=== PATIENT | female | born 1965 | race Hispanic/Latino ===

== ENCOUNTER 2017-02-03 08:29 | Outpatient (CLI) | payer BC ==
--- NOTE | 2017-02-03 10:03 | CT ---
CT OF THE CHEST AND ABDOMEN WITH IV CONTRAST: Indication: History of left breast cancer, status post chemotherapy one month ago. Comparison: None. FINDINGS: CHEST: There is post-surgical change of a left mastectomy. No pathologically enlarged lymph nodes are eviden t within the mediastinum, elsa, or axillary regions. No suspicious pulmonary nodules identified. ABDOMEN: There is a small hiatal hernia. There is a 3.6 cm hypodense lesion within the left hepatic lobe most consistent with a cyst. No additional focal hepatic lesion is evident. The pancreas, adrenal glands, and left kidney are normal appearing. There is a 6 mm hypodensity within the right mid kidney which c annot be fully characterized due to its size. The spleen is mildly enlarged measuring 13.1 cm in its greatest craniocaudad dimension. No free fluid is evident. No pathologically enlarged lymph nodes are noted. The visualized opacified small and large bowel appear within normal limits. Visualized aspects of the appendix appears within normal limits. No suspicious osteolytic or osteoblastic lesion is identified. IMPRESSION: 1. No evidence for regional or metastatic disease. 2. Post-surgical changes of left mastectomy. 3. Left hepatic lobe cyst. 4. Small hiatal hernia. 5. Tiny right renal hypodensity. 6. Nonspecific mild splenomegaly. POS: [facility]
== END 2017-02-03 08:30 | disposition home or self-care (01) ==
LOC: CT 08:29
PROVIDERS: ATTEND Internal Medicine Hematology & Oncology
DX: C50.112 Malignant neoplasm of central portion of left female breast (principal); K76.89 Other specified diseases of liver; K44.9 Diaphragmatic hernia without obstruction or gangrene; N28.89 Other specified disorders of kidney and ureter; R16.1 Splenomegaly, not elsewhere classified; Z90.12 Acquired absence of left breast and nipple
CPT/HCPCS: 71260; 74160

== ENCOUNTER 2017-06-22 13:47 | Outpatient (CLI) | payer BC | END 2017-06-22 13:48 | disposition home or self-care (01) | LOC: BICMAMMO 13:47 | PROVIDERS: ATTEND Internal Medicine Hematology & Oncology | DX: Z08 Encounter for follow-up examination after completed treatment for malignant neoplasm (principal); Z85.3 Personal history of malignant neoplasm of breast; Z80.3 Family history of malignant neoplasm of breast | CPT/HCPCS: G0279 ==

== ENCOUNTER 2018-01-19 14:01 | Outpatient (CLI) | payer BC ==
[2018-01-19 15:00] LABS: Hemoglobin 13.5 g/dL (12.0-16.0); Mean Corpuscular HGB CONC 33.1 g/dL (32.0-36.0); Mean Corpuscular Hemoglobin 30.5 pg (27.0-31.0); Mean Corpuscular Volume 92.1 fL (78.0-98.0); Mean Platelet Volume 8.3 fL (7.4-10.4); Platelet Count 205 thou/uL (130-400); RBC Distribution Width 11.3 % (11.5-14.5); Red Blood Cell (RBC) Count 4.41 mill/uL (4.20-5.40); White Blood Cell (WBC) Count 6.1 thou/uL (4.8-10.8)
== END 2018-01-19 14:02 | disposition home or self-care (01) ==
LOC: LABBT 14:01
PROVIDERS: ATTEND Obstetrics & Gynecology
DX: Z01.812 Encounter for preprocedural laboratory examination (principal); Z85.3 Personal history of malignant neoplasm of breast
CPT/HCPCS: 85027; 86850; 86900; 86901

== ENCOUNTER 2018-01-24 12:05 | Day surgery (SDC) | payer BC ==
[2018-01-19 14:32] VITALS: BMI 30.3
--- NOTE | 2018-01-19 15:53 | HP ---
SCHEDULED DATE OF SURGERY: 01/24/2018. HISTORY OF PRESENT ILLNESS: Ms. Heath is a 52-year-old white female, G2, P2, with history of triple-negative left breast cancer. She is followed by her oncologist, Dr. Small, who has recommended removal of her tubes and ovaries due to the aggressive nature of her breast cancer. She denies any family history of uterine cancer. She is post menopausal. She has no abnormal Pap smear history with recent Pap and HPV being negative in February 2017. She has a history of maternal breast cancer in her mother and grandmother. PAST MEDICAL HISTORY: As noted, unilateral left mastectomy. SOCIAL HISTORY: Nonsmoker. No excessive alcohol use. ALLERGIES: SHE HAS ALLERGY TO PENICILLIN A CHILD, WHICH CAUSED A RASH. FAMILY HISTORY: As noted, diabetes mellitus in a brother, malignant breast cancer tumor in mother and maternal grandmother. CURRENT MEDICATIONS: 1. Benadryl 25 mg q.6 hours p.r.n. 2. Varubi 90 mg tablet as needed for nausea. PHYSICAL EXAMINATION: VITAL SIGNS: Today, the patient's height 5 feet 6 inches, weight 177, BMI 28.6. Blood pressure 118/78, pulse 64, respiratory rate 18. HEENT: Within normal limits. CHEST: Clear to auscultation. HEART: Regular rate and rhythm. S1 and S2 heart sounds. No murmurs, rubs, or gallops. BREASTS: Left mastectomy noted. ABDOMEN: Soft, nontender, nondistended with no palpable masses. PELVIC: Vulva and vagina had no lesions. Cervix had no lesions. Uterus, small and tender. Adnexa, nontender with no masses. ASSESSMENT: This is a 52-year-old white female with history of left mastectomy for triple-negative breast cancer. She is desiring breast reduction, salpingectomy, and oophorectomies due to the aggressive nature of her breast cancer as recommended by her oncologist, Dr. Small. PLAN: Plan is to proceed with a laparoscopic bilateral salpingo-oophorectomy for 01/24/2018. Risks and benefits of procedure were discussed in detail. She is set for surgery. Job ID: [id number]
[2018-01-24] MEDS ORDERED: CEFAZOLIN 2 GM/50 ML BAG ONE (15:01)
[2018-01-24] MEDS ORDERED: CeleCOXIB 100 MG CAP ONE (15:01)
[2018-01-24] MEDS ORDERED: Gabapentin 300 MG CAP ONE (15:01)
[2018-01-24] MEDS ORDERED: Famotidine/PF 20 mg/2ml Vial ONE (15:02)
[2018-01-24] MEDS ORDERED: Midazolam HCl 2 mg/2 ml Vial ONE (15:02)
[2018-01-24] MEDS ORDERED: Fentanyl 250 MCG/5 ML VIAL ONE (15:44)
[2018-01-24] MEDS ORDERED: Bupivacaine HCl 0.5%/Epinephrine 1:200,000/PF 30 ml Vial ONE (16:26)
[2018-01-24] MEDS ORDERED: Dexamethasone 20 MG/5 ML VIAL ONE (21:11)
[2018-01-24] MEDS ORDERED: Ondansetron PF 4 MG/2 ML Vial ONE (21:11)
[2018-01-24] MEDS ORDERED: PROPOFOL 200 MG/20 ML VIAL ONE (21:11)
[2018-01-24] MEDS ORDERED: Ketorolac Tromethamine 30 MG/ML VIAL ONE (21:11)
[2018-01-24] MEDS ORDERED: Metoclopramide HCl 10 MG/2 ML VIAL ONE (21:11)
[2018-01-24] MEDS ORDERED: Lidocaine 1% PF 5 ML VIAL ONE (21:11)
[2018-01-24] MEDS ORDERED: Glycopyrrolate 0.2 MG/ML 5 ML SYRINGE ONE (21:11)
--- NOTE | 2018-01-25 01:09 | OP ---
DATE OF PROCEDURE: 01/24/2018 PREOPERATIVE DIAGNOSES: 1. A 52-year-old white female with triple-negative breast cancer. 2. Risk-reduction bilateral salpingo-oophorectomy. POSTOPERATIVE DIAGNOSES: 1. A 52-year-old white female with triple-negative breast cancer. 2. Risk-reduction bilateral salpingo-oophorectomy. PROCEDURE PERFORMED: Laparoscopic bilateral salpingo-oophorectomy. AMERICAN HISTORY PROFESSOR SURGEON: Marc Hernández DO, MS ANESTHESIA: General endotracheal. ESTIMATED BLOOD LOSS: Less than 10 mL. COMPLICATIONS: None. COUNTS: Correct x2. ANTIBIOTICS: 2 g Ancef, on-call to OR along with ERAS protocol. PATHOLOGY: Bilateral fallopian tubes and ovaries. FINDINGS: 1. Normal-appearing postmenopausal fallopian tubes, ovaries, and uterus. 2. Normal-appearing liver and abdominal wall with no evidence of any tumor implants or suspicious lesions. DISPOSITION: To recovery room, stable and then plan for discharge to home. DESCRIPTION OF PROCEDURE: The patient previously received informed consent in regard to surgery. She was taken back to the operating room, where she received general endotracheal anesthetic agent without complications. She was placed in dorsal lithotomy position with the use of Juan stirrups, and prepped and draped in the usual sterile fashion. An in and out catheterization of bladder was performed at this time. A sidearm speculum was placed in the vagina. Anterior lip of cervix was grasped with single-tooth tenaculum and a [place] uterine manipulator was placed. Tenaculum and speculum were then removed. Then, attention was turned to the abdomen, where perspective trocar sites were infiltrated with 0.5% Marcaine with epinephrine. A 5-mm infraumbilical incision was made and Veress needle was placed into the peritoneal cavity. The patient's pressure was noted to be less than 5 mm. The abdomen was insufflated to the patient's pressure of 15 approximately 5 L of carbon dioxide gas. Veress needle was then removed. A size 5-mm trocar was then placed through the infraumbilical incision and a 5-mm laparoscope was introduced through the trocar sleeve confirming proper entry. The uterus was elevated from the pelvis, but with the uterine manipulator, the previously mentioned findings were noted. Additional 5 mm left lower quadrant trocar was placed under laparoscopic guidance along with an 11 mm midline suprapubic trocar. My topographical field assistant grasped the right fallopian tube fimbria and then with use of the 5 mm LigaSure device with a [place] grasper, the mesosalpinx underneath the right fimbria was grasped, coagulated, and transected. Then, the right infundibulopelvic ligament was grasped, coagulated, and transected. Serial coagulation of the mesosalpinx under the adnexal structures was coagulated and transected until the area of the right utero-ovarian ligament was reached. It was coagulated and transected, and the specimen was then placed in the anterior cul-de-sac of the pelvis. The hemostasis in the pedicle sites was confirmed. Again, the left ovary and fallopian tube were identified and it was grasped with an atraumatic grasper at the fimbria. The left infundibulopelvic ligament was then coagulated and transected with the LigaSure device. Serial coagulation of the mesosalpinx under the adnexal structure again was coagulated and transected until the cornual region of uterus was reached and the utero-ovarian ligament was coagulated and transected. Again, the specimen was placed in the anterior cul-de-sac. Pedicle sites again were confirmed to be hemostatic. A size 10-mm Endobag was then placed through the 11-mm trocar in the suprapubic midline area by my topographical field assistant and then I placed the specimen into the Endobag and this was secured and closed. The bag with the adnexal structures was then easily brought up through the fascial defect in the midline at the suprapubic region. The pelvis was irrigated and suctioned. Again, hemostasis was confirmed. The GraNee needle with device closure was then placed through the trocar in the mid-pubic symphysis region and this was closed under direct visualization of the fascial approximation with 0 Vicryl suture. Hemostasis was confirmed. The excess carbon dioxide gas was released from the abdomen. Trocar sleeves were removed and the trocar sites were closed and the skin with 4-0 Monocryl subcuticular stitch fashion with Dermabond. The [place] uterine manipulator was removed. The vaginal and cervical hemostasis were confirmed. The patient was awakened from the anesthesia and transferred to recovery room, stable. She is scheduled for discharge later this evening from the Day Stay. Job ID: [id number]
== END 2018-01-24 20:20 | disposition home or self-care (01) ==
LOC: SDC 12:05
PROVIDERS: ATTEND Obstetrics & Gynecology
PROC: 0UT24ZZ Resection of Bilateral Ovaries, Percutaneous Endoscopic Approach (ICD-10-PCS; principal; 2018-01-24)
PROC: 0UT74ZZ Resection of Bilateral Fallopian Tubes, Percutaneous Endoscopic Approach (ICD-10-PCS; principal; 2018-01-24)
DX: Z40.02 Encounter for prophylactic removal of ovary(s) (principal); Z90.12 Acquired absence of left breast and nipple; Z88.0 Allergy status to penicillin
CPT/HCPCS: 88307; J0670; J1100; J1885; J2001; J2250; J2405; J2704; J2765; J3010; S0028

== ENCOUNTER 2018-02-27 12:19 | Outpatient (CLI) | payer BC ==
--- NOTE | 2018-02-27 16:25 | CT ---
CT CHEST WITH CONTRAST: HISTORY: Breast cancer. Bilateral axillary swelling x2 weeks. Left mastectomy. The patient is undergoing ch emotherapy. COMPARISON: 02/03/2017 FINDINGS: No mediastinal mass, lymphadenopathy, or hematoma. Heart size is within normal limits. No pericardi al effusion. The thoracic aorta and upper abdominal aorta have a normal caliber. No periaortic fat stranding. The central pulmonary arteries are adequately opacified. No obvious central filling defe ct to suggest PE. The left and right axilla do not demonstrate any masses or lymphadenopathy. Left mastectomy changes are noted. The trachea and central bronchi are patent. No masses or consolidation. Minimal atelectatic changes . No pleural effusion or pneumothorax. The visualized upper solid organs are grossly unremarkable. Redemonstration of a cyst involving the left hepatic lobe. No lytic or blastic lesions in the osseous structures. The visualized central left and right upper extremity venous system appear to be patent. Contrast wa s administered via the right upper extremity venous system, and no filling defect is appreciated. No obvious filling defect in the visualized left upper extremity venous system. IMPRESSION: 1. No evidence of left or right axillary lymphadenopathy. 2. No evidence of a central vascular filling defect or occlusion at the level of the superior vena c rashard, which could possibly explain bilateral upper extremity swelling. POS: [facility]
--- NOTE | 2018-02-27 16:36 | MRI ---
BRAIN MRI WITH AND WITHOUT CONTRAST: INDICATION: Breast malignancy with a history of headaches (C50.112, breast cancer; R51, headaches). FINDINGS: There is normal size of the ventricular system. No acute territorial infarction, mass effect, or mid line shift. No significant abnormalities of the brain parenchyma. No hemorrhagic susceptibility is seen, intracranially. The visualized skull base flow voids are patent. No pathologic enhancing intr aaxial mass. There is a partially empty sella. IMPRESSION: No intracranial metastases, or evidence of acute intracranial abnormality. POS: [facility]
[2018-02-27] MEDS ORDERED: Iopamidol 370 76% 100 ML VIAL ONE (16:55)
[2018-02-27] MEDS ORDERED: Gadobenate Dimeglumine 529 MG/1 ML (20ML VIAL) ONE (17:00)
== END 2018-02-27 12:20 | disposition home or self-care (01) ==
LOC: BICMRI 12:19
PROVIDERS: ATTEND Internal Medicine Hematology & Oncology
DX: C50.112 Malignant neoplasm of central portion of left female breast (principal); R51 Headache
CPT/HCPCS: 70553; 71260

== ENCOUNTER 2018-06-27 08:14 | Outpatient (CLI) | payer BC ==
--- NOTE | 2018-06-27 08:38 | MMO ---
Right Breast MAMMO Unilat Diag DDI RT+CORRINA. CLINICAL HISTORY: Patient is 52 years old and is seen for diagnostic exam. The patient has the following family history of breast cancer: maternal grandmother; paternal grandmother and mother. The patient has a history of left Mastectomy at age 50 - malignant. VIEWS: The views performed were: right craniocaudal with tomosynthesis; right mediolateral oblique with tomosynthesis; and right mediolateral. FILMS COMPARED: The present examination has been compared to a prior imaging study performed at [facility] on 06/22/2017. MAMMOGRAM FINDINGS: There are scattered fibroglandular densities. There are no suspicious masses, suspicious calcifications, or new areas of architectural distortion. IMPRESSION: THERE IS NO MAMMOGRAPHIC EVIDENCE OF MALIGNANCY. A ROUTINE FOLLOW-UP MAMMOGRAM IN 1 YEAR IS RECOMMENDED. THE RESULTS OF THIS EXAM WERE SENT TO THE PATIENT. ACR BI-RADS Category 1 - Negative MAMMOGRAPHY NOTE: 1. A negative mammogram report should not delay a biopsy if a dominant of clinically suspicious mass is present. 2. Approximately 10% to 15% of breast cancers are not detected by mammography. 3. Adenosis and dense breasts may obscure an underlying neoplasm.
== END 2018-06-27 08:15 | disposition home or self-care (01) ==
LOC: BICMAMMO 08:14
PROVIDERS: ATTEND Internal Medicine Hematology & Oncology
DX: C50.112 Malignant neoplasm of central portion of left female breast (principal)
CPT/HCPCS: G0279

== ENCOUNTER 2019-05-23 07:19 | Outpatient (CLI) | payer BC ==
[2019-05-23] MEDS ORDERED: Iopamidol 370 76% 100 ML VIAL ONE (08:59)
--- NOTE | 2019-05-23 09:29 | ULT ---
SOFT TISSUE ULTRASOUND OF THE LEFT AXILLA: INDICATION: Left axillary pain. History of breast cancer on the left with post left mastectomy. FINDINGS: There is a small benign-appearing lymph node in the left axilla measuring 0.9 cm. No other mass or l ymph node is seen. No evidence of adenopathy. IMPRESSION: Unremarkable ultrasound left axilla. A single small benign-appearing lymph node is identified. POS: [facility]
--- NOTE | 2019-05-23 10:14 | CT ---
CT CHEST WITH IV CONTRAST: Date: 05/23/2019 INDICATION: Breast cancer. Bilateral axillary pain. Post left mastectomy. Comparison made to CT chest dated 02/27/2018. FINDINGS: Lung dueñas are clear. There is no evidence of infiltrate or effusion. No evidence of pulmonary nodul e or mass. Very mild pleural based atelectasis seen posteriorly in both lungs. The mediastinum is unremarkable. No adenopathy. Thyroid unremarkable. Axillary regions are unremarkable. Small, nonspecific axillary lymph nodes are seen, which are subcen timeter. Post left mastectomy change. Images through upper abdomen again show the cyst along the superior margin of the spleen which is sta ble. Visualized liver, pancreas, and kidneys are unremarkable, although these organs are not complete ly imaged. Osseous structures are unremarkable. Superior vena cava is patent. The pulmonary arteries and thoraci c aorta appear unremarkable. No evidence of proximal pulmonary embolus. IMPRESSION: Stable CT chest. No acute finding or interval change. POS: [facility]
== END 2019-05-23 07:20 | disposition home or self-care (01) ==
LOC: BICCT 07:19
PROVIDERS: ATTEND Internal Medicine Hematology & Oncology
DX: C50.112 Malignant neoplasm of central portion of left female breast (principal); M79.622 Pain in left upper arm; I89.0 Lymphedema, not elsewhere classified
CPT/HCPCS: 71260; 76999

== ENCOUNTER 2019-05-30 09:05 | Outpatient (CLI) | payer BC ==
--- NOTE | 2019-05-30 10:01 | MMO ---
Right Breast MAMMO Unilat Diag DDI RT+CORRINA. CLINICAL HISTORY: Patient is 53 years old and is seen for diagnostic exam. The patient has the following family history of breast cancer: maternal grandmother; paternal grandmother and mother, at age 62. The patient has a history of left Mastectomy at age 50 - malignant. VIEWS: The views performed were: right craniocaudal with tomosynthesis; right mediolateral oblique with tomosynthesis; and right mediolateral with tomosynthesis. FILMS COMPARED: The present examination has been compared to prior imaging studies performed at and 06/27/2018. This study has been interpreted with the assistance of computer-aided detection. MAMMOGRAM FINDINGS: There are scattered fibroglandular densities. There are stable benign appearing calcifications seen in the right breast. There are no suspicious masses, suspicious calcifications, or new areas of architectural distortion. IMPRESSION: THERE IS NO MAMMOGRAPHIC EVIDENCE OF MALIGNANCY. A ROUTINE FOLLOW-UP MAMMOGRAM IN 1 YEAR IS RECOMMENDED. THE RESULTS OF THIS EXAM WERE SENT TO THE PATIENT. ACR BI-RADS Category 2 - Benign finding MAMMOGRAPHY NOTE: 1. A negative mammogram report should not delay a biopsy if a dominant of clinically suspicious mass is present. 2. Approximately 10% to 15% of breast cancers are not detected by mammography. 3. Adenosis and dense breasts may obscure an underlying neoplasm. Reported by: JADE GIBBS MD Electonically Signed: [id number]
== END 2019-05-30 09:06 | disposition home or self-care (01) ==
LOC: BICMAMMO 09:05
PROVIDERS: ATTEND Internal Medicine Hematology & Oncology
DX: Z08 Encounter for follow-up examination after completed treatment for malignant neoplasm (principal); Z85.3 Personal history of malignant neoplasm of breast; Z90.12 Acquired absence of left breast and nipple
CPT/HCPCS: G0279

== ENCOUNTER 2019-06-15 07:18 | Outpatient (CLI) | payer BC, OTHER ==
[2019-06-15 10:23] LABS: #Lymphocytes 1.3 thou/uL (1.20-3.40); #Monocytes 0.5 thou/uL (0.11-0.59); #Neutrophils 3.2 thou/uL (1.40-6.50); %Basophils 0.4 % (0.0-1.0); %Eosinophils 0.9 % (0.0-10.0); %Lymphocytes 25.8 % (21.0-51.0); %Monocytes 9.7 % (0.0-10.0); %Neutrophils 63.2 % (42.0-75.0); Hemoglobin 13.4 g/dL (12.0-16.0); Mean Corpuscular HGB CONC 33.3 g/dL (32.0-36.0); Mean Corpuscular Volume 93.1 fL (78.0-98.0); Mean Platelet Volume 8.3 fL (7.4-10.4); Platelet Count 197 thou/uL (130-400); RBC Distribution Width 11.2 % (11.5-14.5); Red Blood Cell (RBC) Count 4.33 mill/uL (4.20-5.40); White Blood Cell (WBC) Count 5.1 thou/uL (4.8-10.8)
[2019-06-15 11:12] LABS: Anion Gap 14 mmol/L (10-20); BUN (Urea Nitrogen) 13 mg/dL (9.8-20.1); Calc. Creatinine Clearance 0 mL/min (70-130); Calcium 9.3 mg/dL (7.8-10.44); Carbon Dioxide 22 mmol/L (22-29); Chloride 108 mmol/L (98-107); Estimated GFR-MDRD 84; Glucose 89 mg/dL (70-105); Potassium 3.9 mmol/L (3.5-5.1); Sodium 140 mmol/L (136-145)
[2019-06-20 10:56] LABS: SARS-CoV-2 MS2 Positive; SARS-CoV-2 N Gene Negative; SARS-CoV-2 S Gene Negative; SARS-CoV-2 orf1ab Negative
== END 2019-06-15 07:19 | disposition home or self-care (01) ==
LOC: LABBT 07:18
PROVIDERS: ATTEND Specialist
DX: Z01.812 Encounter for preprocedural laboratory examination (principal); Z11.59 Encounter for screening for other viral diseases; Z85.3 Personal history of malignant neoplasm of breast
CPT/HCPCS: 80048; 85025; 87635; U0003

== ENCOUNTER 2019-06-22 09:26 | Day surgery (SDC) | payer BC ==
[2019-06-15 09:03] VITALS: BMI 31.4
[2019-06-22] MEDS ORDERED: Heparin 5,000 UNITS/ML VIAL ONE (10:00)
[2019-06-22] MEDS ORDERED: Ketorolac Tromethamine 30 MG/ML VIAL ONE (10:00)
[2019-06-22] MEDS ORDERED: Levofloxacin 500 mg/D5W 100 ml Premix Bag ONE (10:01)
[2019-06-22] MEDS ORDERED: Ondansetron PF 4 MG/2 ML Vial ONE (11:54)
[2019-06-22] MEDS ORDERED: Dexamethasone 20 MG/5 ML VIAL ONE (11:54)
[2019-06-22] MEDS ORDERED: Glycopyrrolate 0.2 MG/ML 5 ML SYRINGE ONE (11:54)
[2019-06-22] MEDS ORDERED: Rocuronium Bromide 10 MG/ML (10ML VIAL) ONE (11:54)
[2019-06-22] MEDS ORDERED: PHENYLEPHRINE-NS 100 MCG/ML 10 ML SYRINGE ONE (11:54)
[2019-06-22] MEDS ORDERED: PROPOFOL 200 MG/20 ML VIAL ONE (11:54)
[2019-06-22] MEDS ORDERED: Lidocaine 1% PF 5 ML VIAL ONE (11:54)
[2019-06-22] MEDS ORDERED: Lidocaine 2% Jelly 5 ML TUBE ONE (12:01)
[2019-06-22] MEDS ORDERED: Fentanyl 250 MCG/5 ML VIAL ONE (12:01)
[2019-06-22] MEDS ORDERED: Midazolam HCl 2 mg/2 ml Vial ONE (12:01)
[2019-06-22] MEDS ORDERED: Bupivacaine 0.25% HCL 30 ML VIAL ONE (12:53)
[2019-06-22] MEDS ORDERED: Lidocaine 1% w/Epinephrine 1:100K 20 ML VIAL ONE (12:53)
[2019-06-22] MEDS ORDERED: Promethazine HCl 25 MG/ML VIAL IM PRN (15:19)
[2019-06-22] MEDS ORDERED: HYDROmorphone 2 MG/ML VIAL SLOW IVP PRN (15:19)
[2019-06-22] MEDS ORDERED: Promethazine HCl 25 MG/ML VIAL SLOW IVP PRN (15:19)
[2019-06-22] MEDS ORDERED: Ondansetron HCl/PF 4 MG/2 ML Vial IVP PRN (15:19)
[2019-06-22] MEDS ORDERED: Fentanyl 100 MCG/2 ML VIAL ONE (15:46)
[2019-06-22] MEDS ORDERED: HYDROcodone/Acetaminophen 5/325 mg Tablet ONE (16:54)
--- NOTE | 2019-06-23 06:54 | OP ---
DATE OF PROCEDURE: 06/22/2019 PREOPERATIVE DIAGNOSIS: History of left breast cancer. POSTOPERATIVE DIAGNOSIS: History of left breast cancer. PROCEDURES PERFORMED: 1. Right nipple reconstruction. 2. Internal Liu flap. DESCRIPTION OF PROCEDURE: Following induction of adequate anesthesia, the patient was prepped and draped in the usual sterile fashion in supine position. The nipple was harvested as a full-thickness nipple graft after being incised around a 42 mm nipple sizer. The inferior flap of the proposed Pathak-pattern mastectomy was then de-epithelialized. A skin flap was then raised inferiorly exposing the breast tissue as well as protecting the viability of the de-epithelialized flap. Dr. Rodgers then performed a mastectomy through the remainder of the Pathak-pattern incision. At the conclusion of the mastectomy, the internal Liu flap was inset superiorly and the inverted T closure was performed with 3-0 PDS suture and 3-0 Monocryl suture. A recipient 42 mm nipple defect was de-epithelialized on the mastectomy flaps and the nipple was secured into place with quilting running 2-0 Prolene suture. All surgical dueñas were copiously irrigated with irrigation and inspected for meticulous hemostasis prior to closure. Job ID: [id number]
--- NOTE | 2019-06-25 01:02 | OP ---
DATE OF PROCEDURE: 06/22/2019 PREOPERATIVE DIAGNOSIS: History of left breast cancer, concern for further potential malignancy, desire for breast symmetry. POSTOPERATIVE DIAGNOSIS: History of left breast cancer, concern for further potential malignancy, desire for breast symmetry. OPERATION PERFORMED: Right breast mastectomy, skin sparing, utilizing breast reduction technique, with creation of Liu flap per Dr. Sujit Pak, right nipple reconstruction per Dr. Pak. FOREST ENGINEER: Sujit Pak MD ANESTHESIA: General endotracheal. INDICATIONS: The patient is a 53-year-old female. She has a history of left breast cancer for which she underwent prior left mastectomy. There is no evidence of disease within the right breast. She presents this time for right mastectomy. DESCRIPTION OF OPERATION: Informed consent was obtained. The patient taken to the operating room, where general endotracheal anesthesia was obtained, placed in supine position. A Pathak pattern mastectomy incision was marked on the skin per Dr. Pak. Utilizing this incision, Dr. Pak initially de-epithelialized the inferior flap (the Liu flap). He also harvested the nipple for later grafting. The mastectomy incision was then created, and dissection was carried through skin and subcutaneous tissue. adipose flaps were raised and dissection carried down to the chest wall superiorly and medially. The inferior Liu flap was then completed by elevating the flap off the underlying breast tissue, again down to the chest wall. The breast tissue was then swept off the chest wall in a medial to lateral fashion. All dissection was carried out using the plasma blade. The specimen was tagged for orientation and submitted to Pathology for permanent specimen. No pathology was encountered during the operation. The wound was carefully irrigated with saline. Meticulous hemostasis was obtained. A #19 round fluted drain was obtained and brought out laterally and inferiorly where it was secured with a 3-0 nylon suture. The inverted-T incision was then closed using 3-0 PDS and 4-[address] Pak placed the right breast nipple graft and secured it in the usual fashion. Dermabond was placed over the nipple graft as well as the incisions. A fluff gauze and Osman wrap dressing were then applied. There were no complications. The patient tolerated the procedure well, taken to the recovery room in stable condition. Job ID: [id number]
== END 2019-06-22 17:49 | disposition home or self-care (01) ==
LOC: SDC 09:26
PROVIDERS: ATTEND Specialist
PROC: 0HTT0ZZ Resection of Right Breast, Open Approach (ICD-10-PCS; principal; 2019-06-22)
PROC: 0HX5XZZ Transfer Chest Skin, External Approach (ICD-10-PCS; principal; 2019-06-22)
DX: N60.11 Diffuse cystic mastopathy of right breast (principal); Z79.899 Other long term (current) drug therapy; Z85.3 Personal history of malignant neoplasm of breast; Z88.0 Allergy status to penicillin
CPT/HCPCS: 88307; J0690; J1100; J1644; J1885; J1956; J2001; J2250; J2405; J2704; J3010; S0020

== ENCOUNTER 2019-07-05 06:40 | Outpatient (CLI) | payer BC, OTHER ==
[2019-07-05 17:36] LABS: SARS-CoV-2 MS2 Positive; SARS-CoV-2 N Gene Negative; SARS-CoV-2 S Gene Negative; SARS-CoV-2 orf1ab Negative
== END 2019-07-05 06:41 | disposition home or self-care (01) ==
LOC: LABBT 06:40
PROVIDERS: ATTEND Plastic Surgery
DX: Z01.812 Encounter for preprocedural laboratory examination (principal); Z11.59 Encounter for screening for other viral diseases; Z85.3 Personal history of malignant neoplasm of breast
CPT/HCPCS: 87635; U0003

== ENCOUNTER 2019-07-06 09:46 | Day surgery (SDC) | payer BC ==
[2019-07-05 08:56] VITALS: BMI 31.4
[2019-07-06] MEDS ORDERED: EPINEPHrine 1 MG/ML AMP ONE ×2 (10:21→12:14)
[2019-07-06] MEDS ORDERED: Sodium Chloride 0.9% 10 ML ONE (10:21)
[2019-07-06] MEDS ORDERED: Bupivacaine 0.25% HCL 30 ML VIAL ONE (10:21)
[2019-07-06] MEDS ORDERED: Gentamicin 80 MG/2 ML VIAL ONE (10:21)
[2019-07-06] MEDS ORDERED: Midazolam HCl 2 mg/2 ml Vial ONE (10:28)
[2019-07-06] MEDS ORDERED: Fentanyl 100 MCG/2 ML VIAL ONE ×3 (10:28→15:24)
[2019-07-06] MEDS ORDERED: Heparin 5,000 UNITS/ML VIAL ONE (10:53)
[2019-07-06] MEDS ORDERED: Zolpidem Tartrate 5 MG TAB PO PRN (12:00)
[2019-07-06] MEDS ORDERED: Promethazine HCl 25 MG/ML VIAL IM PRN (12:00)
[2019-07-06] MEDS ORDERED: Ropivacaine 0.2% 550 ML 550 ML NERVE BLCK SCH ×2 (12:00→12:15)
[2019-07-06] MEDS ORDERED: Ondansetron PF 4 MG/2 ML Vial IVP PRN (12:00)
[2019-07-06] MEDS ORDERED: traMADol HCl 50 MG TAB PO PRN ×2 (12:00)
[2019-07-06] MEDS ORDERED: HYDROcodone/Acetaminophen 10/325 mg Tablet PO PRN ×2 (12:00)
[2019-07-06] MEDS ORDERED: Acetaminophen 325 MG TAB PO PRN (12:00)
[2019-07-06] MEDS ORDERED: Fentanyl 100 MCG/2 ML VIAL IV PRN (12:01)
[2019-07-06] MEDS ORDERED: Bupivacaine PF 0.5% 30 ML VIAL ONE (12:14)
[2019-07-06] MEDS ORDERED: Dexamethasone 20 MG/5 ML VIAL ONE (14:58)
[2019-07-06] MEDS ORDERED: Ondansetron PF 4 MG/2 ML Vial ONE (14:58)
[2019-07-06] MEDS ORDERED: Glycopyrrolate 0.2 MG/ML 5 ML SYRINGE ONE (14:58)
[2019-07-06] MEDS ORDERED: PROPOFOL 200 MG/20 ML VIAL ONE (14:58)
[2019-07-06] MEDS ORDERED: Rocuronium Bromide 10 MG/ML (10ML VIAL) ONE (14:58)
[2019-07-06] MEDS ORDERED: Lidocaine 1% PF 5 ML VIAL ONE (14:58)
[2019-07-06] MEDS ORDERED: EPHEDRINE 25 MG/5 ML SYRINGE ONE (14:58)
[2019-07-06] MEDS ORDERED: Ropivacaine 0.2% HCl/PF (40 MG/20 ML VIAL) ONE (14:58)
[2019-07-06] MEDS ORDERED: Ropivacaine 0.5% HCl/PF (150 MG/30 ML VIAL) ONE (14:58)
[2019-07-06] MEDS ORDERED: Ketorolac Tromethamine 30 MG/ML VIAL ONE (14:58)
[2019-07-06] MEDS ORDERED: Lidocaine 1% (PF) 30 ML VIAL ONE (15:46)
[2019-07-06] MEDS ORDERED: HYDROcodone/Acetaminophen 5/325 mg Tablet ONE (17:15)
--- NOTE | 2019-07-08 16:17 | OP ---
DATE OF PROCEDURE: 07/06/2019 PREOPERATIVE DIAGNOSES: 1. Breast cancer. 2. Status post bilateral mastectomy. POSTOPERATIVE DIAGNOSES: 1. Breast cancer. 2. Status post bilateral mastectomy. PROCEDURE: Bilateral placement of tissue expanders for breast reconstruction (08166.50). OPERATIVE FINDINGS: Left breast tissue human services professional, [place], reference number is [id number], serial #[id number] filled to a volume of 250 mL. Right breast tissue human services professional. The reference number is [id number], serial #[id number] with zero volume placed. PROCEDURE: Following induction of adequate anesthesia, patient was prepped and draped in usual sterile fashion in the supine position. Attention was first turned to the left inframammary crease. An incision was made. Dissection was carried sharply down to the pectoralis fascia. Subsequently, adequate submuscular pocket was created with release of the inferior attachments of the pectoralis muscle. Significant scar tissue was encountered laterally, which was released. The pocket was copiously irrigated with hypochlorite solution followed by antibiotic solution and dilute Betadine solution prior to placement of antibiotic beads and then the above implant. The implant was secured at the suture tabs inferiorly and medially with 2-0 Prolene suture. The pocket was inspected for meticulous hemostasis prior to closure with 2-0 and 3-0 PDS suture followed by 3-0 Monocryl suture. The implant was accessed through the port and filled. Attention was turned to the right side. The existing inframammary crease scar was incised. The prior mastectomy flap and internal Liu flap were elevated. A prepectoral tissue human services professional was placed after similar irrigation and inspected for meticulous hemostasis. It was similarly secured. The pocket was again reinspected prior to closure with 3-0 PDS suture and 3-0 Monocryl suture. The patient tolerated the procedure well. Job ID: [id number]
== END 2019-07-06 18:00 | disposition home or self-care (01) ==
LOC: SDC 09:46
PROVIDERS: ATTEND Plastic Surgery
PROC: 0HHV0NZ Insertion of Tissue Expander into Bilateral Breast, Open Approach (ICD-10-PCS; principal; 2019-07-06)
DX: Z42.1 Encounter for breast reconstruction following mastectomy (principal); Z85.3 Personal history of malignant neoplasm of breast; Z88.0 Allergy status to penicillin
CPT/HCPCS: A4306; C1713; J0171; J0690; J1100; J1580; J1644; J1885; J2001; J2250; J2405; J2704; J2795; J3010; J3370; S0020

== ENCOUNTER 2019-12-19 05:43 | Outpatient (CLI) | payer BC ==
[2019-12-20 18:38] LABS: SARS-CoV-2 MS2 Positive; SARS-CoV-2 N Gene Negative; SARS-CoV-2 S Gene Negative; SARS-CoV-2 by NAA Not Detected (NotDetected); SARS-CoV-2 orf1ab Negative
== END 2019-12-19 05:44 | disposition home or self-care (01) ==
LOC: LABBT 05:43
PROVIDERS: ATTEND Plastic Surgery
DX: Z01.812 Encounter for preprocedural laboratory examination (principal); Z20.828 Contact with and (suspected) exposure to other viral communicable diseases; Z85.3 Personal history of malignant neoplasm of breast
CPT/HCPCS: 87635; U0003

== ENCOUNTER 2019-12-24 05:42 | Day surgery (SDC) | payer BC ==
[2019-12-20 11:44] VITALS: BMI 30.4
[2019-12-24] MEDS ORDERED: Heparin 5,000 UNITS/ML VIAL ONE (06:28)
[2019-12-24] MEDS ORDERED: Propofol 1,000 MG/100 ML VIAL IV ONE (06:28)
[2019-12-24] MEDS ORDERED: Famotidine/PF 20 mg/2ml Vial ONE (06:28)
[2019-12-24] MEDS ORDERED: Fentanyl 100 MCG/2 ML VIAL ONE ×3 (06:28→10:24)
[2019-12-24] MEDS ORDERED: Midazolam HCl 2 mg/2 ml Vial ONE (06:33)
[2019-12-24] MEDS ORDERED: Dexmedetomidine 200 MCG/2 ML VIAL ONE (06:35)
[2019-12-24] MEDS ORDERED: Bupivacaine 0.25% HCL 30 ML VIAL ONE (06:46)
[2019-12-24] MEDS ORDERED: EPINEPHrine 1 MG/ML AMP ONE (06:46)
[2019-12-24] MEDS ORDERED: Gentamicin 80 MG/2 ML VIAL ONE ×2 (06:46→09:10)
[2019-12-24] MEDS ORDERED: Lidocaine 1% (PF) 30 ML VIAL ONE ×2 (06:47→07:11)
[2019-12-24] MEDS ORDERED: Lidocaine 2% PF 5 ML VIAL ONE (07:22)
[2019-12-24] MEDS ORDERED: Ketamine 50 MG/ML (10ML VIAL) ONE (07:22)
[2019-12-24] MEDS ORDERED: Magnesium 5 GM/10 ML Abboject SYRINGE ONE (07:31)
[2019-12-24] MEDS ORDERED: SUGAMMADEX SODIUM 200 MG/2 ML VIAL ONE (08:07)
[2019-12-24] MEDS ORDERED: Tranexamic Acid 1,000 MG/10 ML VIAL ONE (08:13)
[2019-12-24] MEDS ORDERED: Sodium Chloride 0.9% 100 ML ONE (08:14)
[2019-12-24] MEDS ORDERED: Phenylephrine 10 MG/ML VIAL ONE (08:35)
[2019-12-24] MEDS ORDERED: HYDROcodone/Acetaminophen 5/325 mg Tablet ONE (11:18)
--- NOTE | 2019-12-24 13:05 | OP ---
DATE OF PROCEDURE: 12/24/2019 PREOPERATIVE DIAGNOSES: 1. Breast cancer. 2. Status post bilateral tissue steward/stewardess economy class breast reconstruction. INDICATIONS FOR PROCEDURE: The patient is a 54-year-old female, status post relatively recent right mastectomy and more remotely left mastectomy. Her postoperative steward/stewardess economy class course was significant for a vague erythema of the left breast with multiple rounds of antibiotics. The issue seemed to resolve on its own. She was developing significant discomfort in the breast that was relieved by elevation or support. DESCRIPTION OF PROCEDURE: Following induction of adequate anesthesia, the patient was prepped and draped in usual sterile fashion in supine position. A right inframammary crease incision was made. The steward/stewardess economy class was removed. A widely open appropriate looking pocket was encountered. Attention was turned to the left side. An inframammary crease incision was made. Dissection was carried sharply down to the breast capsule, which was opened. The steward/stewardess economy class was removed. An extremely inflamed breast pocket was encountered. There was significant inflammatory tissue. Cultures were taken as well as specimens. Much of the internal capsule appeared to have a lining of inflammatory tissue that almost looked like a second capsule was beginning to form. All this was sharply debrided. Due to the inflammatory nature of this, the pocket oozed with capillary bleeding. TXA was used as irrigation to help stem this. This was satisfactorily stopped. The pocket was copiously irrigated with hypochlorite solution, followed by antibiotic, and then dilute Betadine solution prior to placement of a 535 mL implant. The pocket was then closed with 2-0 PDS for the capsule and 3-0 PDS interrupted running for the skin and deep dermal. New instruments and new gloves were donned to return to the right side, which had been covered up. The pocket was reinspected. A sizer was used to determine what implant would give the best symmetry. A 325 mL implant was chosen. The pocket was similarly closed. Fat grafting, which had been harvested by traditional liposuction of the abdomen, was injected around the left breast medially and laterally to try to enhance the shape. Approximately 30 mL of fat were injected. The fat had been aspirated and allowed to separate prior to decanting and injecting. Skin barriers and fresh gloves were used to insert the implant. The patient tolerated the procedure well. Job ID: [id number]
[2019-12-24] MEDS ORDERED: Dexamethasone 20 MG/5 ML VIAL ONE (13:49)
[2019-12-24] MEDS ORDERED: Ketorolac Tromethamine 30 MG/ML VIAL ONE (13:49)
[2019-12-24] MEDS ORDERED: Ondansetron PF 4 MG/2 ML Vial ONE (13:49)
[2019-12-24] MEDS ORDERED: Rocuronium Bromide 10 MG/ML (10ML VIAL) ONE (13:49)
[2019-12-24] MEDS ORDERED: Metoclopramide HCl 10 MG/2 ML VIAL ONE (13:49)
[2019-12-24] MEDS ORDERED: Lidocaine 1% PF 5 ML VIAL ONE (13:49)
[2019-12-24] MEDS ORDERED: PROPOFOL 200 MG/20 ML VIAL ONE (13:49)
[2019-12-24] MEDS ORDERED: PHENYLEPHRINE-NS 100 MCG/ML 10 ML SYRINGE ONE (13:49)
[2019-12-24] MEDS ORDERED: Glycopyrrolate 0.2 MG/ML 5 ML SYRINGE ONE (13:49)
[2019-12-26 10:39] LABS: Fungus Stain Final report (.)
== END 2019-12-24 12:05 | disposition home or self-care (01) ==
LOC: SDC 05:42
PROVIDERS: ATTEND Plastic Surgery
PROC: 0HHV0NZ Insertion of Tissue Expander into Bilateral Breast, Open Approach (ICD-10-PCS; principal; 2019-12-24)
PROC: 0HRV37Z Replacement of Bilateral Breast with Autologous Tissue Substitute, Percutaneous Approach (ICD-10-PCS; principal; 2019-12-24)
DX: C50.912 Malignant neoplasm of unspecified site of left female breast (principal); Z79.899 Other long term (current) drug therapy; Z88.0 Allergy status to penicillin; Z85.3 Personal history of malignant neoplasm of breast
CPT/HCPCS: 87070; 87077; 87102; 87116; 87186; 87205; 87206; 88304; C1713; C1789; J0171; J0690; J1100; J1580; J1644; J1885; J2001; J2250; J2370; J2405; J2704; J2765; J3010; J3370; J3475; J3490; S0020; S0028

== ENCOUNTER 2020-12-01 07:37 | Outpatient (CLI) | payer BC ==
[2020-12-01] MEDS ORDERED: Magnevist 469MG/ML 20 ML VIAL ONE ×2 (09:41)
== END 2020-12-01 07:38 | disposition home or self-care (01) ==
LOC: BICMRI 07:37
PROVIDERS: ATTEND Internal Medicine Hematology & Oncology
DX: M54.50 Low back pain, unspecified (principal); C50.112 Malignant neoplasm of central portion of left female breast; M47.816 Spondylosis without myelopathy or radiculopathy, lumbar region; M51.27 Other intervertebral disc displacement, lumbosacral region; M51.26 Other intervertebral disc displacement, lumbar region; G89.29 Other chronic pain
CPT/HCPCS: 72158; 72197; A9579